=== PATIENT | female | born 1970 | race Caucasian/White ===

== ENCOUNTER 2024-01-30 15:00 | Emergency (ER) | payer OTHER ==
[2024-01-30] MEDS ORDERED: ASPIRIN 81 MG CHEWABLE TABLET ONE (15:31)
[2024-01-30] MEDS ORDERED: ONDANSETRON 4 MG/2 ML VIAL ONE (15:33)
[2024-01-30 15:34] LABS: Absolute Basophils 0.1 K/uL (0-0.5); Absolute Eosinophils 0.1 K/uL (0-0.5); Absolute Lymphocytes (CBC) 2.3 K/uL (0.7-4.9); Absolute Neutrophil 10.7 K/uL (1.8-8.0); Basophils % 0.4 % (0-1.3); Eosinophils % 0.7 % (0-4.4); Hematocrit 47.3 % (36.0-45.0); Hemoglobin 15.7 g/dL (12.0-15.0); Lymphocytes % 15.9 % (15.3-44.8); MCHC 33.2 g/dL (32.0-36.0); MCV 90.2 fL (80-100); MPV 7.2 fL (7.6-11.3); Monocytes % 7.2 % (3.3-12.3); Neutrophils % 75.8 % (41.7-73.7); Platelets 291 thou/uL (152-406); RBC Red Blood Cell Count 5.24 M/uL (3.86-4.86)
[2024-01-30 15:53] LABS: Anion Gap 8.6 mEq/L (5.0-15.0); BUN Blood Urea Nitrogen 12 mg/dL (7-18); Bicarbonate 26 mEq/L (21-32); Glomerular Filtration Rate 102 ml/min (=/>90); Glucose Level 113 mg/dL (74-106); NT PRO-BNP 51 pg/mL (<125); Potassium 3.6 mEq/L (3.5-5.1); Sodium Level 136 mEq/L (136-145)
[2024-01-30 15:55] LABS: Troponin High Sensitivity < 3.0 pg/mL (<58.9)
--- NOTE | 2024-01-30 16:56 | RAD REPORT ---
EXAMINATION: ONE VIEW CHEST XR CLINICAL INDICATION: CHEST PAIN TECHNIQUE: Frontal chest projection is submitted. Examination is limited by patient positioning and t echnique. COMPARISON: No prior exam. FINDINGS: The lungs are well inflated and clear. The heart is normal in size. No displaced fractures identified . IMPRESSION: No acute intrathoracic abnormalities.
--- NOTE | 2024-01-30 17:09 | EDPHYS ---
Physician Documentation [facility] Name: Favio Arrieta Age: 53 yrs Sex: Female : 1970 Arrival Date: 01/30/2024 Time: 15:00 Bed 18 Private MD: ED Physician Cy Hurt HPI: 01/29 15:12 This 53 yrs old Female presents to ER via Wheelchair with complaints of Chest Pain, Arm [facility] Pain - right. 15:12 53-year-old female with a past medical history of lung CVA with a right lobectomy in [facility] 2012 and previous IV drug user presents to the ER complaining of right arm pain radiating to the sternum starting yesterday. The patient reports that yesterday she noticed that her right arm her but that the chest pain started this morning. She denies any injury, but reports that she may have slept on it wrong. Chest pain reproducible with movement of the right arm. Denies shortness of breath.. Historical: - Allergies: 15:12 No Known Allergies; hb - Home Meds: 15:12 None [Active]; hb - PMHx: 15:12 Lung Cancer; hb - PSHx: 15:12 Lobectomy - Right; hb - Immunization history:: Adult Immunizations up to date. - Infectious Disease History:: Denies. - Social history:: Smoking status: Patient reports the use of cigarette tobacco products, smokes one-half pack cigarettes per day. ROS: 15:12 Constitutional: Per HPI [facility] Exam: 15:12 Constitutional: This is a well developed, well nourished patient who is awake, alert, 7 and in no acute distress. Head/Face: Normocephalic, atraumatic. Eyes: Pupils equal round and reactive to light, extra-ocular motions intact. Lids and lashes normal. Conjunctiva and sclera are non-icteric and not injected. Cornea within normal limits. Periorbital areas with no swelling, redness, or edema. Neck: Trachea midline, no thyromegaly or masses palpated, and no cervical lymphadenopathy. Supple, full range of motion without nuchal rigidity, or vertebral point tenderness. No Meningismus. Cardiovascular: Regular rate and rhythm with a normal S1 and S2. No gallops, murmurs, or rubs. Normal PMI, no JVD. No pulse deficits. Respiratory: Lungs have equal breath sounds bilaterally, clear to auscultation and percussion. No rales, rhonchi or wheezes noted. No increased work of breathing, no retractions or nasal flaring. Abdomen/GI: Soft, non-tender, with normal bowel sounds. No distension or tympany. No guarding or rebound. No evidence of tenderness throughout. Back: No spinal tenderness. No costovertebral tenderness. Full range of motion. Skin: Warm, dry with normal turgor. Normal color with no rashes, no lesions, and no evidence of cellulitis. MS/ Extremity: Pulses equal, no cyanosis. Neurovascular intact. Full, normal range of motion. Neuro: Awake and alert, GCS 15, oriented to person, place, time, and situation. Cranial nerves II-XII grossly intact. Motor strength 5/5 in all extremities. Sensory grossly intact. Cerebellar exam normal. Normal gait. 15:12 Musculoskeletal/extremity: ROM: limited active range of motion due to pain, in the right arm, With abduction beyond 90 degrees, Vital Signs: 15:11 BP 134 / 99; Pulse 73; Resp 16; Temp 98.3(O); Pulse Ox 97% on R/A; Weight 72.57 kg; hb Height 5 ft. 2 in. ; Pain 6/10; 16:00 BP 154 / 93; Pulse 77; Resp 17; Pulse Ox 99% ; rs5 17:40 BP 150 / 88; Pulse 74; Resp 17; Pulse Ox 99% on R/A; rs5 15:11 Body Mass Index 29.26 (72.57 kg, 157.48 cm) hb 15:11 Pain Scale: Adult hb MDM: 15:03 Medical Screening Exam initiated jh7 17:04 Differential diagnosis: pneumonia AMI, NSTEMI, costochondritis, pleurisy, trapezius 7 muscle spasm, cervical radiculopathy. Data reviewed: vital signs, nurses notes, lab test result(s), EKG, radiologic studies, plain films. I considered the following discharge prescriptions or medication management in the emergency department Medications were administered in the Emergency Department. See MAR. Independent interpretation of the following test(s) in the Emergency Department EKG: See my EKG interpretation above X-Ray: My interpretation is No acute findings. Historians other than the Patient: Spouse/Significant Other: . Counseling: I had a detailed discussion with the patient and/or guardian regarding the historical points, exam findings, and any diagnostic results supporting the discharge/admit diagnosis, to return to the emergency department if symptoms worsen or persist or if there are any questions or concerns that arise at home. Response to treatment: the patient's symptoms have markedly improved after treatment. 17:27 Scoring Tools HEART Score: History: ECG: Age: Risk Factors: Troponin: Total Score = 1. [facility] 01/29 15:14 Order name: Basic Metabolic Panel; Complete Time: 15:57 [facility] 01/29 15:14 Order name: CBC with Diff; Complete Time: 15:57 [facility] 01/29 15:14 Order name: NT PRO-BNP; Complete Time: 15:57 [facility] 01/29 15:14 Order name: Troponin HS; Complete Time: 15:57 [facility] 01/29 15:14 Order name: XRAY Chest (1 view); Complete Time: 16:59 [facility] 01/29 15:14 Order name: EKG; Complete Time: 15:14 [facility] 01/29 15:14 Order name: Cardiac monitoring; Complete Time: 15:14 [facility] 01/29 15:14 Order name: EKG - Nurse/Tech; Complete Time: 15:14 [facility] 01/29 15:14 Order name: IV Saline Lock; Complete Time: 15:24 [facility] 01/29 15:14 Order name: Labs collected and sent; Complete Time: 15:24 [facility] 01/29 15:14 Order name: O2 Per Protocol; Complete Time: 15:24 [facility] 01/29 15:14 Order name: O2 Sat Monitoring; Complete Time: 15:24 [facility] EC:10 Rate is 72 beats/min. Rhythm is regular. QRS [place] is Normal. LA interval is normal. QRS jh7 interval is normal. QT interval is normal. No Q waves. T waves are Normal. No ST changes noted. Clinical impression: Normal ECG. Administered Medications: 15:20 Drug: Aspirin PO Chewable Tablet 324 mg PO once; 81 mg tablets x 4 Route: PO; rs5 16:01 Follow up: Response: No adverse reaction rs5 15:40 Drug: Ondansetron IVP 4 mg IVP once; over 2 minutes Route: IVP; Site: right antecubital;rs5 16:01 Follow up: Response: No adverse reaction; Nausea is decreased rs5 Disposition Summary: 01/30/24 17:08 Discharge Ordered Notes: Location: Home [facility] Problem: new [facility] Symptoms: have improved [facility] Condition: Stable [facility] Diagnosis - Trapezius muscle spasm [facility] - Chest pain, unspecified [facility] Followup: [facility] - With: Private Physician - When: 2 - 3 days - Reason: Recheck today's complaints Discharge Instructions: - Discharge Summary Sheet [facility] - Nonspecific Chest Pain, Adult [facility] - Muscle Cramps and Spasms [facility] Forms: - Medication Reconciliation Form [facility] - Patient Portal Instructions [facility] - Leadership Thank You Letter [facility] Prescriptions: - Naprosyn 500 mg Oral Tablet - take 1 tablet ORAL route 2 times per day take with food; 30 tablet; Refills: 0, [facility] Product Selection Permitted - Zanaflex 4 mg Oral Tablet - take 1 tablet ORAL route every 8 hours As needed; 20 tablet; Refills: 0, jh7 Product Selection Permitted Signatures: Dispatcher [employer] Jyotsna Cormier RN RN Breana Rose, [address] [place] [id number] Ozzy Bell RN RN rs5
--- NOTE | 2024-01-30 17:09 | ER ---
Nurse's Notes [facility] Name: Favio Arrieta Age: 53 yrs Sex: Female : 1970 Arrival Date: 01/30/2024 Time: 15:00 Bed 18 Private MD: Diagnosis: Trapezius muscle spasm;Chest pain, unspecified Presentation: 01/29 15:11 Chief complaint: Right arm pain x 2 days, right sided chest pain today. Coronavirus hb screen: At this time, the client does not indicate any symptoms associated with coronavirus-19. Ebola Screen: No symptoms or risks identified at this time. Initial Sepsis Screen: Does the patient meet any 2 criteria? No. Patient's initial sepsis screen is negative. Does the patient have a suspected source of infection? No. Patient's initial sepsis screen is negative. Risk Assessment: Do you want to hurt yourself or someone else? Patient reports no desire to harm self or others. Onset of symptoms was January 29, 2024. 15:11 Method Of Arrival: Wheelchair hb 15:11 Acuity: TALHA 3 hb Historical: - Allergies: 15:12 No Known Allergies; hb - Home Meds: 15:12 None [Active]; hb - PMHx: 15:12 Lung Cancer; hb - PSHx: 15:12 Lobectomy - Right; hb - Immunization history:: Adult Immunizations up to date. - Infectious Disease History:: Denies. - Social history:: Smoking status: Patient reports the use of cigarette tobacco products, smokes one-half pack cigarettes per day. Screenin:[address] [facility] ED Fall Risk Assessment (Adult) History of falling in the last 3 months, rs5 including since admission No falls in past 3 months (0 pts) Confusion or Disorientation No (0 pts) Intoxicated or Sedated No (0 pts) Impaired Gait No (0 pts) Mobility Assist Device Used No (0 pt) Altered Elimination No (0 pt) Score/Fall Risk Level 0 - 2 = Low Risk Oriented to surroundings, Maintained a safe environment. 15:06 Abuse screen: Denies threats or abuse. Nutritional screening: No deficits noted. rs5 Tuberculosis screening: No symptoms or risk factors identified. Assessment: 15:05 General: Appears distressed, uncomfortable, Behavior is cooperative, anxious. Pain: rs5 Complains of pain in chest Pain radiates to right arm Pain currently is 8 out of 10 on a pain scale. Quality of pain is described as aching, Pain began. 15:05 Neuro: Level of Consciousness is awake, alert, obeys commands, Oriented to person, rs5 place, time, situation. Cardiovascular: Patient's skin is warm and dry. Respiratory: Airway is patent Respiratory effort is even, unlabored, Respiratory pattern is regular, symmetrical. GI: Abdomen is round non-distended, Abd is soft and non tender X 4 quads. : No signs and/or symptoms were reported regarding the genitourinary system. EENT: No signs and/or symptoms were reported regarding the EENT system. Derm: Skin is intact, Skin is pink, warm \T\ dry. Musculoskeletal: Range of motion: intact in all extremities. 16:00 Reassessment: Patient and/or family updated on plan of care and expected duration. Pain rs5 level reassessed. Patient is alert, oriented x 3, equal unlabored respirations, skin warm/dry/pink. 17:01 Reassessment: Patient and/or family updated on plan of care and expected duration. Pain rs5 level reassessed. Patient is alert, oriented x 3, equal unlabored respirations, skin warm/dry/pink. 17:40 Reassessment: Patient and/or family updated on plan of care and expected duration. Pain rs5 level reassessed. Patient is alert, oriented x 3, equal unlabored respirations, skin warm/dry/pink. Vital Signs: 15:11 BP 134 / 99; Pulse 73; Resp 16; Temp 98.3(O); Pulse Ox 97% on R/A; Weight 72.57 kg; hb Height 5 ft. 2 in. ; Pain 6/10; 16:00 BP 154 / 93; Pulse 77; Resp 17; Pulse Ox 99% ; rs5 17:40 BP 150 / 88; Pulse 74; Resp 17; Pulse Ox 99% on R/A; rs5 15:11 Body Mass Index 29.26 (72.57 kg, 157.48 cm) hb 15:11 Pain Scale: Adult hb ED Course: 15:02 Patient arrived in ED. ra3 15:03 Bre[facility] Rsoe [facility] jh7 15:03 Cy uHrt MD is Attending Physician. jh7 15:06 Patient has correct armband on for positive identification. Placed in gown. Bed in low rs5 position. Call light in reach. Side rails up X2. 15:08 Ozzy Bell, RN is Primary Nurse. rs5 15:10 No provider procedures requiring assistance completed. Inserted saline lock: 20 gauge rs5 in left antecubital area, using aseptic technique. Blood collected. Flushed with 10 mL NS. Patient maintains SpO2 saturation greater than 95% on room air. 15:12 Triage completed. hb 15:13 EKG done, by ED staff, reviewed by Breana VALENCIA. em1 15:14 Arm band placed on. hb 15:14 Client placed on continuous cardiac and pulse oximetry monitoring. NIBP monitoring hb applied. assurance assistant on. Pulse ox on. NIBP on. 16:38 XRAY Chest (1 view) In Process Unspecified. EDMS 17:40 Provided Education on: discharge instructions . rs5 17:45 IV discontinued, intact, bleeding controlled, No redness/swelling at site. Pressure rs5 dressing applied. Administered Medications: 15:20 Drug: Aspirin PO Chewable Tablet 324 mg PO once; 81 mg tablets x 4 Route: PO; rs5 16:01 Follow up: Response: No adverse reaction rs5 15:40 Drug: Ondansetron IVP 4 mg IVP once; over 2 minutes Route: IVP; Site: right antecubital;rs5 16:01 Follow up: Response: No adverse reaction; Nausea is decreased rs5 Medication: 16:02 VIS not applicable for this client. rs5 Outcome: 17:08 Discharge ordered by . [facility] 17:45 Discharged to home ambulatory, with family, rs5 17:45 Condition: stable rs5 17:45 Discharge instructions given to patient, family, Instructed on discharge instructions, follow up and referral plans. medication usage, Demonstrated understanding of instructions, follow-up care, medications, Prescriptions given X 2, 17:48 Patient left the ED. rs5 Signatures: Dispatcher [employer] Josh Mcnamara em1 Jyotsna Hanson, RN Breana Pérez FNP FNP [facility] Ozzy Bell, RN RN rs5 Rebecca Duvall ra3
[2024-01-30 20:23] VITALS: TEMP 98.3
[2024-01-30 20:29] VITALS: BP 154/93; O2SAT 99
--- NOTE | 2024-02-02 11:41 | EKG ---
Test Date: 2024-01-30 Test Time: 15:10:03 Junior Project Manager: JAYSHREE MEASUREMENT RESULTS: Intervals: Rate: 72 SD: 144 QRSD: 96 QT: 380 QTc: 416 Datto: P: 40 SD: 144 QRS: 83 T: 62 INTERPRETIVE STATEMENTS: Normal sinus rhythm Normal ECG No previous ECG available for comparison Electronically Signed On 02-02-24 11:35:16 BODY MECHANIC APPRENTICE by Melo Howe
== END 2024-01-30 17:48 | disposition home or self-care (01) ==
LOC: ER 15:00
DX: M62.838 Other muscle spasm (principal)
CPT/HCPCS: 85025; 80048; 36415; 84484; 83880; 71045; 96374; 99285; J2405; 93005